=== PATIENT | female | born 1985 | race Caucasian/White ===

== ENCOUNTER 2020-07-20 11:56 | Emergency (ER) | payer OTHER, SELFPAY ==
[2020-07-20] VITALS (25 sets, daily range): BP systolic 114–134; BP diastolic 63–79; PULSE 105–134; RESP 15–27; TEMP 38.8–39.3; O2SAT 97–100; BMI 20.3
--- NOTE | 2020-07-20 12:11 | DI.RAD.S_ITS ---
PROCEDURE: XR CHEST 1V INDICATIONS: fever sp surgery TECHNIQUE: One view of the chest was acquired. COMPARISON: None. FINDINGS: Surgical changes and devices: None. Lungs and pleura: Lungs are clear. No pleural effusions or pneumothorax. Mediastinum: Mediastinal contours appear normal. Heart size is normal. Bones and chest wall: No suspicious bony lesions. Overlying soft tissues appear unremarkable. IMPRESSION: No acute cardiopulmonary disease process. Dictated by: Deysi Hopson MD, PhD on 07/20/2020 at 12:41 Approved by: Deysi Hopson MD, PhD on 07/20/2020 at 12:41
--- NOTE | 2020-07-20 12:44 | ED_ITS ---
HPI - Fever General Chief Complaint: Fever Stated Complaint: SURGERY 6DAYS AGO FEVER BODY ACHES Time Seen by Provider: 07/20/20 12:01 Source: patient Mode of arrival: Ambulatory Limitations: no limitations History of Present Illness HPI Narrative: 35F nonsmoker with noncontributory medical history presents with a chief complaint of fever, shaking chills and bilateral back pain over the past 24 hours. On July 13 patient had a bilateral breast augmentation at [facility]. She had been fine well and even had her 1st outpatient checkup yesterday and everything appeared well. She denies runny nose, sore throat or cough. She has no chest pain or shortness of breath. She only has the discomfort measured above. She states her discomfort is worse with motion and improves with rest. She has no dysuria, frequency or urgency. She denies vaginal bleeding or discharge. Related Data Home Medications Medication Instructions Recorded Confirmed meloxicam 15 mg PO QAM 07/20/20 07/20/20 oxycodone 5 mg PO Q6HR PRN 07/20/20 07/20/20 zafirlukast 20 mg PO BID 07/20/20 07/20/20 Allergies Allergy/AdvReac Type Severity Reaction Status Date / Time levofloxacin [From Levaquin] Allergy Severe Altered Verified 07/20/20 12:11 Sense of Taste lidocaine Allergy Unknown Verified 07/20/20 12:11 Review of Systems Constitutional Constitutional: Reports chills, Denies fatigue, Reports fever(s), Denies frequent falls, Denies lethargy and Denies weakness Eyes Eyes: Denies change in vision, Denies eye discharge, Denies irritation and Denies loss of vision ENT Ears, Nose, Mouth, and Throat: Denies change in voice, Denies dizziness, Denies neck pain, Denies sore throat and Denies throat swelling Cardiovascular Cardiovascular: Denies chest pain, Denies irregular heart rhythm, Denies lightheadedness, Denies palpitations, Denies dyspnea, Denies dyspnea on exertion and Denies orthopnea Respiratory Respiratory: Denies cough, Denies dyspnea, Denies dyspnea on exertion and Denies wheezing Gastrointestinal Gastrointestinal: Denies abdominal pain, Denies change in bowel habits, Denies d iarrhea, Denies nausea and Denies vomiting Musculoskeletal Musculoskeletal: Reports back pain, Denies neck pain and Denies numbness Integumentary/Breasts Skin/Breast: Denies pruritus, Denies erythema, Denies rash and Denies wounds Neurologic Neurologic: Denies behavioral changes, Denies confusion, Denies dizziness, Denies frequent falls, Denies loss of vision, Denies numbness and Denies weakness Psychiatric Psychiatric: Denies anxiety, Denies behavioral changes, Denies confusion, Denies depression, Denies homicidal ideation and Denies suicidal ideation Endocrine Endocrine: Denies fatigue, Denies flushing and Denies palpitations Hematologic/Lymphatic Hematologic/Lymphatic: Denies easy bruising Allergic/Immunologic Allergic/Immunologic: Denies urticaria, Denies throat swelling and Denies wheezing Patient History Social History Smoking Status: Never smoker Smoking Status: Never smoker alcohol intake frequency: 0-2 drinks per day Substance Use Type: does not use Exam Narrative Exam Narrative: GENERAL: [35] year old patient appears stated age. Well- nourished, well-developed patient, in mild distress. Ill appearing HEAD: Atraumatic. Normocephalic. EYES: Pupils equal round and reactive. Extraocular motions intact. No scleral icterus. No injection or drainage. ENT: Nose without bleeding, purulent drainage. Throat without erythema, tonsi llar hypertrophy or exudate. Airway patent. NECK: Trachea midline. Non tender CARDIOVASCULAR: Tachycardic and regular without murmurs, gallops, or rubs. RESPIRATORY: Clear to auscultation. Breath sounds equal bilaterally. No wheezes, rales, or rhonchi. GASTROINTESTINAL: Abdomen soft, mild tenderness over the suprapubic region. No epigastric or RUQ pain. EXTREMITIES: No edema or joint tenderness. BACK: Nontender without deformity or crepitance. No flank tenderness. NEURO: AOx3. SKIN: Incisions on chest exam and with patient permission and female nursing pants busheler at the bedside. Incisions appear clean, dry and intact without surrounding erythema, tenderness or drainage. Initial Vital Signs Initial Vital Signs: Vital Signs Temperature 102.8 F H 07/20/20 12:06 Pulse Rate 105 H 07/20/20 12:06 Respiratory Rate 24 07/20/20 12:06 Blood Pressure 127/73 07/20/20 12:06 Pulse Oximetry 100 07/20/20 12:06 Course Orders Ordered: ED Orders 07/20/20 12:11 XR chest 1V Stat EKG-12 Lead Stat 07/20/20 12:30 Urinalysis and Microscopic Stat 07/20/20 12:36 Complete Blood Count AUTO DIFF Stat Comprehensive Metabolic Panel Stat Lactate (Lactic Acid) Stat Lipase Stat Partial Thromboplastin Time Stat Procalcitonin Stat Prothrombin Time INR Stat Troponin & CK Cardiac Panel Stat 07/20/20 12:40 Test Urine Stat 07/20/20 13:16 COVID19 - ADMIT ([employer] swab/PCR) Stat 07/20/20 13:55 Blood Culture Stat 07/20/20 14:45 CT abdomen pelvis w con Stat CT angio chest PE protocol Stat 07/20/20 15:13 US abdomen limited Stat Ondansetron HCl (Ondansetron 4 Mg/2 Ml Inj) 4 mg IV Q4HR PRN PRN Reason: Nausea And Vomiting Last Admin: 07/20/20 12:55 Dose: 4 mg Documented by: VENICE Discontinued Medications Acetaminophen (Acetaminophen 325 Mg Tablet) 975 mg PO NOW ONE Stop: 07/20/20 14:14 Last Admin: 07/20/20 14:16 Dose: 975 mg Documented by: SHANNA Hydromorphone HCl (Hydromorphone 0.5 Mg Inj) 0.5 mg IV NOW ONE Stop: 07/20/20 12:51 Last Admin: 07/20/20 12:55 Dose: 0.5 mg Documented by: VENICE Hydromorphone HCl (Hydromorphone 0.5 Mg Inj) 0.5 mg IV NOW ONE Stop: 07/20/20 16:57 Last Admin: 07/20/20 17:01 Dose: 0.5 mg Documented by: RICK Lactated Ringer's (Lactated Ringers) 1,572 mls @ 524 mls/hr 30 ml/kg infuse over 3 hr (1572 ml) IV NOW ONE Stop: 07/20/20 15:10 Last Infusion: 07/20/20 16:00 Dose: 0 mls/hr Documented by: Admin: 07/20/20 12:51 Dose: 524 mls/hr Documented by: VENICE Ceftriaxone Sodium/Dextrose (Rocephin) 1 gm in 50 mls @ 100 mls/hr IV NOW ONE Stop: 07/20/20 13:54 Last Infusion: 07/20/20 14:45 Dose: 0 mls/hr Documented by: Admin: 07/20/20 14:13 Dose: 100 mls/hr Documented by: SHANNA Metronidazole (Flagyl) 500 mg in 100 mls @ 100 mls/hr IV NOW ONE Stop: 07/20/20 17:35 Last Infusion: 07/20/20 17:58 Dose: 0 mls/hr Documented by: Admin: 07/20/20 16:53 Dose: 100 mls/hr Documented by: RICK Consultations Consultation #1: call to hospitalist here at . NO available beds, no beds until at least tomorrow Consultation #2: call to [facility] given her recent surgery there. Hospitalist happy to accept Vital Signs Vital signs: Vital Signs - 8 hr 07/20/20 12:06 07/20/20 12:27 07/20/20 12:30 Temperature 102.8 F H Pulse Rate 105 H 134 H 134 H Respiratory Rate 24 Blood Pressure 127/73 128/78 124/79 Pulse Oximetry 100 100 100 07/20/20 13:00 07/20/20 13:30 07/20/20 14:00 Temperature Pulse Rate 125 H 125 H 119 H Respiratory Rate 17 21 Blood Pressure 117/70 117/72 134/73 Pulse Oximetry 100 99 100 07/20/20 14:30 07/20/20 15:01 07/20/20 15:02 Temperature Pulse Rate 123 H 124 H 124 H Respiratory Rate 20 16 Blood Pressure 123/71 115/63 Pulse Oximetry 100 100 07/20/20 15:30 07/20/20 16:00 07/20/20 16:30 Temperature Pulse Rate 121 H 126 H 122 H Respiratory Rate 20 20 22 Blood Pressure 122/71 115/64 115/67 Pulse Oximetry 99 99 98 07/20/20 17:00 07/20/20 17:30 07/20/20 18:00 Temperature Pulse Rate 119 H 121 H 119 H Respiratory Rate 27 H 19 15 Blood Pressure 120/71 114/65 Pulse Oximetry 100 100 98 07/20/20 18:09 07/20/20 18:30 07/20/20 19:00 Temperature Pulse Rate 122 H 117 H 121 H Respiratory Rate 16 18 Blood Pressure 114/65 119/64 122/65 Pulse Oximetry 98 100 100 07/20/20 19:29 Temperature 102.2 F H Pulse Rate Respiratory Rate Blood Pressure Pulse Oximetry MDM - Fever Lab Data Result diagrams: 07/20/20 12:36 07/20/20 12:36 Labs: Lab Results 07/20/20 07/20/20 07/20/20 Range/Units 12:30 12:36 12:36 WBC 18.7 H (4.5-11.0) X10^3/uL RBC 4.30 (4.0-5.2) X10^6/uL Hgb 12.9 (12.0-16.0) g/dL Hct 38.6 (36-46) % MCV 89.8 (80-100) fL MCH 30.0 (26-34) PG MCHC 33.5 (30-36) % RDW 13.9 (11.6-14.8) % Plt Count 212 (150-400) X10^3/uL Neut % (Auto) 92.9 H (50-75) % Lymph % (Auto) 2.1 L (25-40) % [place] % (Auto) 4.8 (3-14) % Eos % (Auto) 0.1 L (2-4) % Baso % (Auto) 0.1 (0-2) % Neut # (Auto) 02157 H (8566-2879) /uL Lymph # (Auto) 400 L (3730-9263) /uL [place] # (Auto) 900 (0-900) /uL Eos # (Auto) 0 (0-450) /uL Baso # (Auto) 0 (0-100) /uL PT 13.3 H (10.1-12.7) SECONDS INR 1.2 (0.9-1.3) APTT (26.4-36.2) SECONDS Sodium (137-145) mmol/L Potassium (3.4-5.1) mmol/L Chloride (98-107) mmol/L Carbon Dioxide (22-32) mmol/L BUN (7-17) mg/dL Creatinine (0.52-1.04) mg/dL Estimated GFR (>60) mL/min BUN/Creatinine Ratio (6-22) Glucose (70-100) mg/dL Lactate (0.7-2.1) mmol/L Calcium (8.4-10.2) mg/dL Total Bilirubin (0.2-1.3) mg/dL AST (14-36) IU/L ALT (<35) IU/L Alkaline Phosphatase (38-126) U/L Total Creatine Kinase (30-135) U/L CK-MB (CK-2) CK-MB (CK-2) Rel Index Troponin I (0.01-0.034) ng/mL Total Protein (6.3-8.2) g/dL Albumin (3.5-5.0) g/dL Globulin (1.7-4.1) g/dL Albumin/Globulin Ratio (1.0-2.8) Lipase (23-300) U/L Procalcitonin (<0.5) ng/mL Urine Color Yellow Urine Appearance Clear Urine pH 6.0 (4.5-8.0) Ur Specific [place] 1.025 (1.000-1.035) Urine Protein Negative (Negative) Urine Glucose (UA) Negative (Negative) g/dL Urine Ketones Negative (NEGATIVE) Urine Occult Blood Trace-lysed (Negative) Urine Nitrate Negative (Negative) Urine Bilirubin Negative (NEGATIVE) Urine Urobilinogen 0.2 (0.2) E.U./dL Ur Leukocyte Esterase Negative (NEGATIVE) Urine RBC None seen (0-5/HPF) Urine WBC None seen (0-5/HPF) Calcium Oxalate Crystal Few H Urine Bacteria Few (2-10) H (None) Ur Culture Indicated? Cult not indicated Urine Test (Negative) SARS-CoV-2 (PCR) (Negative) 07/20/20 07/20/20 07/20/20 Range/Units 12:36 12:36 12:36 WBC (4.5-11.0) X10^3/uL RBC (4.0-5.2) X10^6/uL Hgb (12.0-16.0) g/dL Hct (36-46) % MCV (80-100) fL MCH (26-34) PG MCHC (30-36) % RDW (11.6-14.8) % Plt Count (150-400) X10^3/uL Neut % (Auto) (50-75) % Lymph % (Auto) (25-40) % Fre[place] % (Auto) (3-14) % Eos % (Auto) (2-4) % Baso % (Auto) (0-2) % Neut # (Auto) (3792-1667) /uL Lymph # (Auto) (3332-6179) /uL Fre[place] # (Auto) (0-900) /uL Eos # (Auto) (0-450) /uL Baso # (Auto) (0-100) /uL PT (10.1-12.7) SECONDS INR (0.9-1.3) APTT 34 (26.4-36.2) SECONDS Sodium 134 L (137-145) mmol/L Potassium 3.6 (3.4-5.1) mmol/L Chloride 101 (98-107) mmol/L Carbon Dioxide 24 (22-32) mmol/L BUN 10 (7-17) mg/dL Creatinine 0.83 (0.52-1.04) mg/dL Estimated GFR > 60.0 (>60) mL/min BUN/Creatinine Ratio 12.0 (6-22) Glucose 122 H (70-100) mg/dL Lactate 1.0 (0.7-2.1) mmol/L Calcium 10.0 (8.4-10.2) mg/dL Total Bilirubin 0.3 (0.2-1.3) mg/dL AST 45 H (14-36) IU/L ALT 29 (<35) IU/L Alkaline Phosphatase 43 (38-126) U/L Total Creatine Kinase 95 (30-135) U/L CK-MB (CK-2) TNP CK-MB (CK-2) Rel Index TNP Troponin I < 0.012 (0.01-0.034) ng/mL Total Protein 8.3 H (6.3-8.2) g/dL Albumin 4.8 (3.5-5.0) g/dL Globulin 3.5 (1.7-4.1) g/dL Albumin/Globulin Ratio 1.4 (1.0-2.8) Lipase (23-300) U/L Procalcitonin 0.65 H (<0.5) ng/mL Urine Color Urine Appearance Urine pH (4.5-8.0) Ur Specific [place] (1.000-1.035) Urine Protein (Negative) Urine Glucose (UA) (Negative) g/dL Urine Ketones (NEGATIVE) Urine Occult Blood (Negative) Urine Nitrate (Negative) Urine Bilirubin (NEGATIVE) Urine Urobilinogen (0.2) E.U./dL Ur Leukocyte Esterase (NEGATIVE) Urine RBC (0-5/HPF) Urine WBC (0-5/HPF) Calcium Oxalate Crystal Urine Bacteria (None) Ur Culture Indicated? Urine Test (Negative) SARS-CoV-2 (PCR) (Negative) 07/20/20 07/20/20 07/20/20 Range/Units 12:36 12:40 13:16 WBC (4.5-11.0) X10^3/uL RBC (4.0-5.2) X10^6/uL Hgb (12.0-16.0) g/dL Hct (36-46) % MCV (80-100) fL MCH (26-34) PG MCHC (30-36) % RDW (11.6-14.8) % Plt Count (150-400) X10^3/uL Neut % (Auto) (50-75) % Lymph % (Auto) (25-40) % [place] % (Auto) (3-14) % Eos % (Auto) (2-4) % Baso % (Auto) (0-2) % Neut # (Auto) (6328-1026) /uL Lymph # (Auto) (0213-0088) /uL [place] # (Auto) (0-900) /uL Eos # (Auto) (0-450) /uL Baso # (Auto) (0-100) /uL PT (10.1-12.7) SECONDS INR (0.9-1.3) APTT (26.4-36.2) SECONDS Sodium (137-145) mmol/L Potassium (3.4-5.1) mmol/L Chloride (98-107) mmol/L Carbon Dioxide (22-32) mmol/L BUN (7-17) mg/dL Creatinine (0.52-1.04) mg/dL Estimated GFR (>60) mL/min BUN/Creatinine Ratio (6-22) Glucose (70-100) mg/dL Lactate (0.7-2.1) mmol/L Calcium (8.4-10.2) mg/dL Total Bilirubin (0.2-1.3) mg/dL AST (14-36) IU/L ALT (<35) IU/L Alkaline Phosphatase (38-126) U/L Total Creatine Kinase (30-135) U/L CK-MB (CK-2) CK-MB (CK-2) Rel Index Troponin I (0.01-0.034) ng/mL Total Protein (6.3-8.2) g/dL Albumin (3.5-5.0) g/dL Globulin (1.7-4.1) g/dL Albumin/Globulin Ratio (1.0-2.8) Lipase 102 (23-300) U/L Procalcitonin (<0.5) ng/mL Urine Color Urine Appearance Urine pH (4.5-8.0) Ur Specific [place] (1.000-1.035) Urine Protein (Negative) Urine Glucose (UA) (Negative) g/dL Urine Ketones (NEGATIVE) Urine Occult Blood (Negative) Urine Nitrate (Negative) Urine Bilirubin (NEGATIVE) Urine Urobilinogen (0.2) E.U./dL Ur Leukocyte Esterase (NEGATIVE) Urine RBC (0-5/HPF) Urine WBC (0-5/HPF) Calcium Oxalate Crystal Urine Bacteria (None) Ur Culture Indicated? Urine Test Negative (Negative) SARS-CoV-2 (PCR) Negative (Negative) Point of Care Testing Test Results Negative Urine Dip Bedside Urine Glucose Negative Bedside Urine Bilirubin - Negative Bedside Urine Ketone - Negative Urine Specific [place] 1.020 Bedside Urine Occult Blood - Negative Bedside Urine pH 6 Bedside Urine Protein - Negative Bedside Urine Urobilinogen - Negative Bedside Urine Nitrite - Negative Bedside Urine Leukocytes - Negative Esterase Imaging Data CT scan - chest: Radiologist's Impression: [address] [id number] Scan ReportSigned Patient: Anita Chapa [facility]#: [id number]: 1985Acct:[id number]/Sex: 35 / FDate of Service: 07/20/20Loc: EDAccession Number: [id number] Procedure: CT angio chest PE protocol Ordering Provider: Sagar Santoro D.O. PROCEDURE: CT ANGIO CHEST PE PROTOCOL INDICATIONS: tachycardia, elevated WBC, recent surgery, per surgeon TECHNIQUE: After the administration of intravenous contrast, 2 mm thick sections acquired from the pulmonary apices to the posterior costophrenic angles. 3-dimensional maximum intensity projection (MIP) coronal and sagittal reformats were then acquired through the thorax. For radiation dose reduction, the following was used: automated exposure control, adjustment of mA and/or kV according to patient size. COMPARISON: None. FINDINGS: Image quality: Excellent. Pulmonary arteries: Pulmonary arteries are normal in size, and demonstrate no intraluminal filling defects to suggest central pulmonary embolism. Lungs and pleura: Lungs are clear. No pleural effusions or pneumothorax. Central and peripheral airways are patent. Mediastinum: Heart size is normal, without pericardial effusion. No mediastinal or hilar adenopathy. Thoracic aorta is normal in caliber and enhancement. Esophagus is normal in caliber, without hiatal hernia. Bones and chest wall: No suspicious bony lesions. Ribs and thoracic spine appear intact throughout. Thyroid gland is unremarkable as visualized No axillary or supracla vicular adenopathy. Bilateral mammoplasties. Air present in subcutaneous tissues and beneath the medial right pectoralis muscle and extending into the bilateral axillary regions likely is resultant from recent surgery. No identified superficial abscess cavities. There is a small amount of fluid immediately medial to the left breast implant which likely is explained by recent surgery. Abdomen: Visualized upper abdominal solid organs appear normal in the early arterial phase of enhancement. IMPRESSION: 1. No evidence acute pulmonary emboli. 2. No evidence acute pulmonary process. 3. Bilateral mammoplasties with associated air which is presumed secondary to very recent surgery. There is a small amount of fluid medial to the left breast implant which most likely is an incidental finding secondary to recent breast surgery. Dictated by: Nam Leija M.D. on 07/20/2020 at 15:10 Approved by: Nam Leija M.D. on 07/20/2020 at 15:14 CT scan - abdomen/pelvis: Radiologist's Impression: [address] [id number] Scan ReportSigned Patient: Anita Chapa [facility]#: [id number]: 1985Acct:[id number]/Sex: 35 / FDate of Service: 07/20/20Loc: EDAccession Number: [id number] Procedure: CT abdomen pelvis w con Ordering Provider: Sagar Santoro D.O. PROCEDURE: CT ABDOMEN PELVIS W CON INDICATIONS: septic, back, lower abdomen pain, recent breast surgery TECHNIQUE: After the administration of intravenous contrast, 5 mm thick sections acquired f rom the diaphragm to the symphysis. 5 mm coronal and sagittal reformats were acquired. For radiation dose reduction, the following was used: automated exposure control, adjustment of mA and/or kV according to patient size. COMPARISON: [facility], CT, CT ANGIO CHEST PE PROTOCOL, 07/20/2020, 14:51. FINDINGS: Image quality: Excellent. ABDOMEN: Lung bases: Lung bases are clear. Heart size is normal. Bilateral mammoplasties. Subcutaneous air and air adjacent to the mammoplasties suggests recent surgical implantation. Solid organs: Liver is normal in size and enhancement. Gallbladder has a mildly prominent wall with a question of edema in the wall of the gallbladder. Biliary system is non dilated. Pancreas enhances normally. Spleen is normal in size and enhancement. No adrenal nodules. Kidneys demonstrate normal size and enhancement, without hydronephrosis. Peritoneum and bowel: There is diffuse thickening of the wall of the distal transverse colon through the descending colon consistent with acute colitis. Mildly prominent small bowel loops with fluid suggest possible gastroenteritis versus ileus. Mild pelvic ascites is greater than physiologic. Nodes and vessels: No retroperitoneal or mesenteric adenopathy by size criteria. Aorta and inferior vena cava are normal in size. 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 Miscellaneous: No ventral hernias. PELVIS: Genitourinary: Bladder wall thickness is normal. Miscellaneous: No inguinal hernias or adenopathy. Bones: No suspicious bony lesions. No vertebral body compression fractures. IMPRESSION: 1. Recent bilateral breast implant surgery. 2. Colitis from the distal transverse colon through the descending colon. Consider infectious versus inflammatory versus ischemic etiologies. 3. Question mild gallbladder wall edema. If suspect acute cholecystitis, recommend right upper quadrant ultrasound. 4. Mild pelvic ascites. Dictated by: Nam Leija M.D. on 07/20/2020 at 15:05 Approved by: Nam Leija M.D. on 07/20/2020 at 15:10 US - abdomen: Radiologist's Impression: [address] [id number] ReportSigned Patient: Anita Chapa [facility]#: [id number]: 1985Acct:[id number]/Sex: 35 / FDate of Service: 07/20/20Loc: EDAccession Number: [id number] Procedure: US abdomen limited Ordering Provider: Sagar Santoro D.O. PROCEDURE: US ABDOMEN LIMITED INDICATIONS: FOLLOW UP CT ?CHOLECYSTITIS TECHNIQUE: Real-time focused scanning was performed of the abdomen, with image documentation. COMPARISON: [facility], CT, CT ABD PELVIS W CON, 03/06/2015, 3:51. [facility], CT, CT ANGIO CHEST PE PROTOCOL, 07/20/2020, 14:51. [facility], CT, CT ABDOMEN PELVIS W CON, 07/20/2020, 14:51. FINDINGS: No gallstones. No gallbladder wall thickening, pericholecystic fluid or sonographic Winkler's sign. Liver demonstrates normal size and echotexture. The main portal vein measures 1.1 cm and demonstrates hepatopetal flow. Common bile duct is normal in caliber measuring 3.2 mm. Visualized pancreas is normal. IMPRESSION: 1. Normal right upper quadrant abdominal ultrasound. 2. No gallstones or findings to suggest acute cholecystitis. Dictated by: Bianca Garrison M.D. on 07/20/2020 at 16:23 Approved by: Bianca Garrison M.D. on 07/20/2020 at 16:26 MDM Narrative Medical decision making narrative: 35F otherwise healthy presents with fever, chills, tachycardia, tachypnea and back pain. Lungs are clear, chest x-ray and CT chest unremarkable, PE considered but thought unlikely given years with imaging. Normal known he has got expelled with surgical incisions all clean, dry and intact without erythema or dehiscence. Abdomen is largely very soft, no significant findings, there is some tenderness in the suprapubic region again raising suspicion of a possible urinary source, however urine is clear. Imaging does demonstrate some colitis and raises the question about the gallbladder. U ltrasound of the gallbladder unremarkable his patient requires admission for ongoing evaluation and treatment of sepsis which to this point seems to be only explained by colitis on imaging. Critical Care Time Critical Care Time Critical Care Time: Yes Total Critical Care Time: 30 Attestation: The high probability of a clinically significant, sudden or life threatening deterioration of the [CV] system(s) required my full and direct attention, inter vention and personal management. The aggregate critical care time was [30] minutes. This time is in addition to time spent performing reported procedures but includes the following: [x] Data Review and interpretation [x] Patient assessment and monitoring of vital signs [x] Documentation [x] Medication orders and management Discharge Plan Departure Prescriptions: No Action meloxicam 15 mg tablet 15 mg PO QAM RF: 0 zafirlukast 20 mg tablet 20 mg PO BID RF: 0 oxycodone 5 mg tablet 5 mg PO Q6HR PRN (Reason: Pain (Scale Score 7-10)) RF: 0
[2020-07-20] MEDS: LACTATED RINGERS 1,572 ML 524 ML IV (12:51)
[2020-07-20] MEDS: ONDANSETRON 4 MG/2 ML INJ IV (12:55)
[2020-07-20] MEDS: HYDROMORPHONE 0.5 MG INJ IV ×3 (12:55→20:41)
[2020-07-20 12:56] LABS: Pregnancy Test Urine Negative (Negative)
[2020-07-20 13:06] LABS: INR 1.2 (0.9-1.3); Prothrombin Time 13.3 SECONDS (10.1-12.7)
[2020-07-20 13:08] LABS: Add Manual Diff / Slide Review NO; Basophils Absolute Auto 0 /uL (0-100); Basophils Percent Auto 0.1 % (0-2); Eosinophils Absolute Auto 0 /uL (0-450); Eosinophils Percent Auto 0.1 % (2-4); Hematocrit 38.6 % (36-46); Hemoglobin 12.9 g/dL (12.0-16.0); Lymphocytes Absolute Auto 400 /uL (1100-4500); Lymphocytes Percent Auto 2.1 % (25-40); Mean Corpuscular HGB Conc 33.5 % (30-36); Mean Corpuscular Volume 89.8 fL (80-100); Monocytes Absolute Auto 900 /uL (0-900); Monocytes Percent Auto 4.8 % (3-14); Neutrophils Absolute Auto 17400 /uL (1500-7000); Neutrophils Percent Auto 92.9 % (50-75); Platelet Count 212 X10^3/uL (150-400); Red Cell Distribution Width 13.9 % (11.6-14.8); White Blood Cell Count 18.7 X10^3/uL (4.5-11.0)
[2020-07-20 13:11] LABS: HEMOLYSIS < 15 (0-50); Potassium 3.6 mmol/L (3.4-5.1)
[2020-07-20 13:12] LABS: Alanine Aminotransferase 29 IU/L (<35); Albumin 4.8 g/dL (3.5-5.0); Albumin Globulin Ratio 1.4 (1.0-2.8); Alkaline Phosphatase 43 U/L (38-126); Aspartate Aminotransferase 45 IU/L (14-36); Bilirubin Total 0.3 mg/dL (0.2-1.3); Blood Urea Nitrogen 10 mg/dL (7-17); Carbon Dioxide 24 mmol/L (22-32); Chloride 101 mmol/L (98-107); Creatine Kinase 95 U/L (30-135); Estimated Glomerular Filt Rate > 60.0 mL/min (>60); Globulin 3.5 g/dL (1.7-4.1); Glucose 122 mg/dL (70-100); Sodium 134 mmol/L (137-145); Total Protein 8.3 g/dL (6.3-8.2)
[2020-07-20 13:17] LABS: PTT Partial Thromboplastin Tim 34 SECONDS (26.4-36.2)
[2020-07-20 13:23] LABS: Troponin I < 0.012 ng/mL (0.01-0.034)
[2020-07-20 13:28] LABS: Procalcitonin 0.65 ng/mL (<0.5)
[2020-07-20 13:56] LABS: RBC Urine None Seen (0-5/HPF); WBC Urine None Seen (0-5/HPF)
[2020-07-20 14:00] LABS: Appearance Urine UA CLEAR; Bilirubin Urine UA NEGATIVE (NEGATIVE); Color Urine UA YELLOW; Glucose Urine UA NEGATIVE (Negative); Ketones Urine UA NEGATIVE (NEGATIVE); Leukocyte Esterase Urine UA NEGATIVE (NEGATIVE); Nitrite Urine UA NEGATIVE (Negative); Occult Blood Urine UA TRACE-LYSED (Negative); Protein Urine UA NEGATIVE (Negative); Specific Gravity Urine UA 1.025 (1.000-1.035); Urobilinogen Urine UA 0.2 E.U./dL (0.2)
[2020-07-20 14:13] LABS: COVID19 - ADMIT (NP swab/PCR) Negative (Negative)
[2020-07-20] MEDS: CEFTRIAXONE 1 GM/50 ML FROZ.PIGGY IV (14:13)
[2020-07-20] MEDS: ACETAMINOPHEN 325 MG TABLET 975 MG PO (14:16)
[2020-07-20 14:29] LABS: Bacteria Urine Few (2-10); Calcium Oxalate Crystals Urine Few; Culture Indicated Urine Cult Not Indicated
--- NOTE | 2020-07-20 14:45 | DI.CT.S_ITS ---
PROCEDURE: CT ANGIO CHEST PE PROTOCOL INDICATIONS: tachycardia, elevated WBC, recent surgery, per surgeon TECHNIQUE: After the administration of intravenous contrast, 2 mm thick sections acquired from the pulmonary apices to the posterior costophrenic angles. 3-dimensional maximum intensity projection (MIP) coronal and sagittal reformats were then acquired through the thorax. For radiation dose reduction, the following was used: automated exposure control, adjustment of mA and/or kV according to patient size. COMPARISON: None. FINDINGS: Image quality: Excellent. Pulmonary arteries: Pulmonary arteries are normal in size, and demonstrate no intraluminal filling defects to suggest central pulmonary embolism. Lungs and pleura: Lungs are clear. No pleural effusions or pneumothorax. Central and peripheral airways are patent. Mediastinum: Heart size is normal, without pericardial effusion. No mediastinal or hilar adenopathy. Thoracic aorta is normal in caliber and enhancement. Esophagus is normal in caliber, without hiatal hernia. Bones and chest wall: No suspicious bony lesions. Ribs and thoracic spine appear intact throughout. Thyroid gland is unremarkable as visualized No axillary or supraclavicular adenopathy. Bilateral mammoplasties. Air present in subcutaneous tissues and beneath the medial right pectoralis muscle and extending into the bilateral axillary regions likely is resultant from recent surgery. No identified superficial abscess cavities. There is a small amount of fluid immediately medial to the left breast implant which likely is explained by recent surgery. Abdomen: Visualized upper abdominal solid organs appear normal in the early arterial phase of enhancement. IMPRESSION: 1. No evidence acute pulmonary emboli. 2. No evidence acute pulmonary process. 3. Bilateral mammoplasties with associated air which is presumed secondary to very recent surgery. There is a small amount of fluid medial to the left breast implant which most likely is an incidental finding secondary to recent breast surgery. Dictated by: Nam Leija M.D. on 07/20/2020 at 15:10 Approved by: Nam Leija M.D. on 07/20/2020 at 15:14
--- NOTE | 2020-07-20 14:45 | DI.CT.S_ITS ---
PROCEDURE: CT ABDOMEN PELVIS W CON INDICATIONS: septic, back, lower abdomen pain, recent breast surgery TECHNIQUE: After the administration of intravenous contrast, 5 mm thick sections acquired from the diaphragm to the symphysis. 5 mm coronal and sagittal reformats were acquired. For radiation dose reduction, the following was used: automated exposure control, adjustment of mA and/or kV according to patient size. COMPARISON: [facility], CT, CT ANGIO CHEST PE PROTOCOL, 07/20/2020, 14:51. FINDINGS: Image quality: Excellent. ABDOMEN: Lung bases: Lung bases are clear. Heart size is normal. Bilateral mammoplasties. Subcutaneous air and air adjacent to the mammoplasties suggests recent surgical implantation. Solid organs: Liver is normal in size and enhancement. Gallbladder has a mildly prominent wall with a question of edema in the wall of the gallbladder. Biliary system is non dilated. Pancreas enhances normally. Spleen is normal in size and enhancement. No adrenal nodules. Kidneys demonstrate normal size and enhancement, without hydronephrosis. Peritoneum and bowel: There is diffuse thickening of the wall of the distal transverse colon through the descending colon consistent with acute colitis. Mildly prominent small bowel loops with fluid suggest possible gastroenteritis versus ileus. Mild pelvic ascites is greater than physiologic. Nodes and vessels: No retroperitoneal or mesenteric adenopathy by size criteria. Aorta and inferior vena cava are normal in size. 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 Miscellaneous: No ventral hernias. PELVIS: Genitourinary: Bladder wall thickness is normal. Miscellaneous: No inguinal hernias or adenopathy. Bones: No suspicious bony lesions. No vertebral body compression fractures. IMPRESSION: 1. Recent bilateral breast implant surgery. 2. Colitis from the distal transverse colon through the descending colon. Consider infectious versus inflammatory versus ischemic etiologies. 3. Question mild gallbladder wall edema. If suspect acute cholecystitis, recommend right upper quadrant ultrasound. 4. Mild pelvic ascites. Dictated by: Nam Leija M.D. on 07/20/2020 at 15:05 Approved by: Nam Leija M.D. on 07/20/2020 at 15:10
--- NOTE | 2020-07-20 15:13 | DI.US.S_ITS ---
PROCEDURE: US ABDOMEN LIMITED INDICATIONS: FOLLOW UP CT ?CHOLECYSTITIS TECHNIQUE: Real-time focused scanning was performed of the abdomen, with image documentation. COMPARISON: [facility], CT, CT ABD PELVIS W CON, 03/06/2015, 3:51. [facility], CT, CT ANGIO CHEST PE PROTOCOL, 07/20/2020, 14:51. [facility], CT, CT ABDOMEN PELVIS W CON, 07/20/2020, 14:51. FINDINGS: No gallstones. No gallbladder wall thickening, pericholecystic fluid or sonographic Winkler's sign. Liver demonstrates normal size and echotexture. The main portal vein measures 1.1 cm and demonstrates hepatopetal flow. Common bile duct is normal in caliber measuring 3.2 mm. Visualized pancreas is normal. IMPRESSION: 1. Normal right upper quadrant abdominal ultrasound. 2. No gallstones or findings to suggest acute cholecystitis. Dictated by: Bianca Garrison M.D. on 07/20/2020 at 16:23 Approved by: Bianca Garrison M.D. on 07/20/2020 at 16:26
[2020-07-20] MEDS: metroNIDAZOLE 500 MG/100 ML PIGGYBACK 100 MG IV (16:53)
[2020-07-20 17:43] LABS: Lipase 102 U/L (23-300)
[2020-07-20] MEDS: ACETAMINOPHEN 325 MG TABLET 650 MG PO (20:03)
== END 2020-07-20 20:55 | disposition short-term general hospital (02) ==
PROVIDERS: Emergency Provider Emergency Medicine; Family Provider Naturopath; PCP Naturopath
DX: K52.9 Noninfective gastroenteritis and colitis, unspecified (principal); A41.9 Sepsis, unspecified organism; R50.9 Fever, unspecified; M54.9 Dorsalgia, unspecified; R10.30 Lower abdominal pain, unspecified; D72.829 Elevated white blood cell count, unspecified; R00.0 Tachycardia, unspecified; Z20.828 Contact with and (suspected) exposure to other viral communicable diseases
CPT/HCPCS: 36415; 71045; 71275; 74177; 76705; 80053; 81001; 81003; 81025; 82550; 83605; 83690; 84145; 84484; 85025; 85610; 85730; 87040; 87635; 93005; 93010; 96361; 96365; 96367; 96375; 96376; 99284; 99291; C9803; J1170; J2405; Q9967

== ENCOUNTER → 2021-04-08 14:41 | Outpatient (CLI) | payer OTHER, SELFPAY ==
[2021-04-08 15:14] LABS: COVID19 -Nasal RAPID Negative (Negative)
== END ==
PROVIDERS: Family Provider Naturopath; PCP Naturopath; Visit Provider Nurse Practitioner Family
DX: Z20.822 Contact with and (suspected) exposure to COVID-19 (principal)
CPT/HCPCS: 87635

== ENCOUNTER → 2022-04-10 08:01 | Outpatient (ROUT) | payer OTHER, SELFPAY ==
[2022-04-10 08:45] LABS: Add Manual Diff / Slide Review NO; Basophils Absolute Auto 100 /uL (0-100); Basophils Percent Auto 1.1 % (0-2); Eosinophils Absolute Auto 200 /uL (0-450); Eosinophils Percent Auto 3.6 % (2-4); Hematocrit 39.8 % (36-46); Hemoglobin 13.2 g/dL (12.0-16.0); Lymphocytes Absolute Auto 2000 /uL (1100-4500); Lymphocytes Percent Auto 36.4 % (25-40); Mean Corpuscular HGB Conc 33.2 % (30-36); Mean Corpuscular Hemoglobin 29.9 PG (26-34); Monocytes Absolute Auto 400 /uL (0-900); Monocytes Percent Auto 7.5 % (3-14); Neutrophils Absolute Auto 2800 /uL (1500-7000); Neutrophils Percent Auto 51.4 % (50-75); Platelet Count 254 X10^3/uL (150-400); Red Blood Cell Count 4.43 X10^6/uL (4.0-5.2); Red Cell Distribution Width 13.6 % (11.6-14.8); White Blood Cell Count 5.5 X10^3/uL (4.5-11.0)
[2022-04-10 09:01] LABS: Alanine Aminotransferase 19 IU/L (<35); Albumin 4.6 g/dL (3.5-5.0); Albumin Globulin Ratio 1.4 (1.0-2.8); Alkaline Phosphatase 35 U/L (38-126); Aspartate Aminotransferase 29 IU/L (14-36); BUN Creatinine Ratio 14.7 (6-22); Bilirubin Total 0.6 mg/dL (0.2-1.3); Blood Urea Nitrogen 10 mg/dL (7-17); Calcium 8.8 mg/dL (8.4-10.2); Carbon Dioxide 27 mmol/L (22-32); Chloride 105 mmol/L (98-107); Cholesterol 185 mg/dL (140-199); Estimated Glomerular Filt Rate > 60 mL/min (>60); Globulin 3.2 g/dL (1.7-4.1); Glucose 81 mg/dL (70-100); HDL Cholesterol 71 mg/dL (40-60); HEMOLYSIS < 15 (0-50); LDL Cholesterol Calculated 87 mg/dL (<100); Potassium 4.3 mmol/L (3.4-5.1); Sodium 139 mmol/L (137-145); Total Protein 7.8 g/dL (6.3-8.2); Triglycerides 136 mg/dL (35-150)
[2022-04-10 09:18] LABS: Free T3, Triiodothyronine Free 3.44 pg/mL (2.77-5.27); Free T4, Direct Thyroxine 0.82 ng/dL (0.78-2.19); Vitamin D 25 Hydroxy (D3) 38.8 ng/mL (30.0-100.0)
[2022-04-10 09:32] LABS: Thyroid Stimulating Hormone 2.35 uIU/mL (0.47-4.68)
== END ==
PROVIDERS: Family Provider Naturopath; PCP Family Medicine; Visit Provider Family Medicine
DX: E03.9 Hypothyroidism, unspecified (principal); Z83.438 Family history of other disorder of lipoprotein metabolism and other lipidemia; E55.9 Vitamin D deficiency, unspecified; K90.41 Non-celiac gluten sensitivity
CPT/HCPCS: 36415; 80053; 80061; 82306; 84439; 84443; 84481; 85025

== ENCOUNTER → 2022-11-16 07:55 | Outpatient (CLI) | payer OTHER, SELFPAY | PROVIDERS: Family Provider Naturopath; PCP Physician Assistant; Referring Provider Physician Assistant; Visit Provider Physician Assistant | DX: R00.2 Palpitations (principal) | CPT/HCPCS: 93242 ==

== ENCOUNTER → 2023-04-10 12:01 | Outpatient (CLI) | payer OTHER, SELFPAY | PROVIDERS: Family Provider Naturopath; PCP Family Medicine; Visit Provider Family Medicine | DX: R39.9 Unspecified symptoms and signs involving the genitourinary system (principal) | CPT/HCPCS: 87077; 87086; 87186 ==

== ENCOUNTER → 2023-04-20 12:04 | Outpatient (CLI) | payer OTHER, SELFPAY ==
--- NOTE | 2023-04-20 | DI.MG.S_ITS ---
BILATERAL DIGITAL DIAGNOSTIC MAMMOGRAM 3D/2D WITH AUGMENTATION: 04/20/2023 CLINICAL: Left breast lump. Comparison is made to exams dated: 05/26/2022 ultrasound, 06/16/2022 ultrasound, 05/26/2022 mammogram, and 06/01/2020 mammogram - [facility]. Both breasts are heterogeneously dense, which may obscure small masses (category c / 51-75% glandular tissue). There is a 0.9 cm oval asymmetry in the left breast anterior depth inferior region seen on the mediolateral oblique view only. This correlates as palpated. No other significant masses, calcifications, or other findings are seen in either breast. Bilateral breast implants are intact. IMPRESSION: INCOMPLETE: NEEDS ADDITIONAL IMAGING EVALUATION The 0.9 cm oval asymmetry in the left breast is indeterminate. A targeted ultrasound is recommended and will immediately follow. Based on the Tyrer Cuzick model (a risk assessment model) the patient's lifetime risk is 12.8% and her 10 year risk is 1.4%. According to the ACR, ACS, and NCCN guidelines, an annual breast MRI exam along with mammogram is recommended if the patient's lifetime risk is 20% or greater. This exam was interpreted at Station ID: [id number]. NOTE: For mammograms, a report in lay terms will be sent to the patient. Approximately 15% of breast malignancies will not be visualized mammographically. In the management of a palpable breast mass, a negative mammogram must not discourage biopsy of a clinically suspicious lesion. Electronically Signed By: Jarad Nathan M.D. slc/:04/20/2023 13:24:23 ACR BI-RADS Category 0: Incomplete 3340F
--- NOTE | 2023-04-20 12:06 | DI.US.S_ITS ---
LIMITED ULTRASOUND OF LEFT BREAST AND AXILLA: 04/20/2023 CLINICAL: Palpable left breast lump. Comparison is made to exams dated: 04/20/2023 mammogram - [facility], 05/26/2022 ultrasound, 06/16/2022 ultrasound, 05/26/2022 mammogram, and 06/01/2020 mammogram - [facility]. Color flow and real-time ultrasound of the left breast axilla were performed. Wahl scale images of the real-time examination were reviewed. There is a 1.2 cm x 0.9 cm x 0.4 cm oval mass with a circumscribed margin in the left breast at 6 o'clock anterior depth 2 cm from the nipple. This oval mass is hypoechoic with a well-defined boundary. This correlates as palpated and with mammography findings. Color flow imaging demonstrates that there is vascularity present. No significant abnormalities were seen sonographically in the left axilla. IMPRESSION: SUSPICIOUS OF MALIGNANCY The 1.2 cm x 0.9 cm x 0.4 cm oval mass in the left breast has a differential diagnosis of a fibroadenoma and is at a low suspicion for malignancy. An ultrasound guided biopsy is recommended. No enlarged left axillary lymph nodes. Exam findings were discussed with the patient. Discussed additional risk of implant injury with needle biopsy. This exam was interpreted at Station ID: [id number]. Electronically Signed By: Jarad Nathan M.D. [facility] [place]:04/20/2023 13:40:37 letter sent: Biopsy Required Ultrasound BI-RADS: 4a Low suspicion for malignancy
== END ==
LOC: MAMMO 12:05
PROVIDERS: Family Provider Naturopath; PCP Family Medicine; Referring Provider Family Medicine; Visit Provider Family Medicine
DX: R92.8 Other abnormal and inconclusive findings on diagnostic imaging of breast (principal); N63.23 Unspecified lump in the left breast, lower outer quadrant; R92.333 Mammographic heterogeneous density, bilateral breasts; Z98.82 Breast implant status
CPT/HCPCS: 76642; 77066; G0279

== ENCOUNTER → 2023-04-25 09:32 | Outpatient (CLI) | payer OTHER, SELFPAY ==
[2023-04-25 10:13] LABS: Add Manual Diff / Slide Review NO; Basophils Absolute Auto 0 /uL (0-100); Eosinophils Absolute Auto 100 /uL (0-450); Eosinophils Percent Auto 2.4 % (2-4); Hematocrit 36.5 % (36-46); Hemoglobin 12.2 g/dL (12.0-16.0); Lymphocytes Absolute Auto 2000 /uL (1100-4500); Lymphocytes Percent Auto 39.1 % (25-40); Mean Corpuscular HGB Conc 33.5 % (30-36); Mean Corpuscular Hemoglobin 29.2 PG (26-34); Mean Corpuscular Volume 87.3 fL (80-100); Monocytes Absolute Auto 400 /uL (0-900); Monocytes Percent Auto 8.8 % (3-14); Neutrophils Absolute Auto 2500 /uL (1500-7000); Neutrophils Percent Auto 48.7 % (50-75); Platelet Count 276 X10^3/uL (150-400); Red Blood Cell Count 4.18 X10^6/uL (4.0-5.2); Red Cell Distribution Width 14.8 % (11.6-14.8); White Blood Cell Count 5.1 X10^3/uL (4.5-11.0)
[2023-04-25 10:29] LABS: Erythrocyte Sedimentation Rate 2 MM/HR (0-20)
[2023-04-25 10:35] LABS: Alanine Aminotransferase 18 IU/L (<35); Albumin 4.5 g/dL (3.5-5.0); Albumin Globulin Ratio 1.5 (1.0-2.8); Alkaline Phosphatase 42 U/L (38-126); Aspartate Aminotransferase 25 IU/L (14-36); BUN Creatinine Ratio 15.6 (6-22); Bilirubin Total 0.5 mg/dL (0.2-1.3); Blood Urea Nitrogen 10 mg/dL (7-17); Calcium 9.7 mg/dL (8.4-10.2); Carbon Dioxide 27 mmol/L (22-32); Chloride 101 mmol/L (98-107); Cholesterol 176 mg/dL (140-199); Estimated Glomerular Filt Rate > 60 mL/min (>60); Glucose 95 mg/dL (70-100); HDL Cholesterol 75 mg/dL (40-60); HEMOLYSIS < 15 (0-50); LDL Cholesterol Calculated 86 mg/dL (<100); Potassium 4.4 mmol/L (3.4-5.1); Sodium 136 mmol/L (137-145); Total Protein 7.5 g/dL (6.3-8.2); Triglycerides 74 mg/dL (35-150)
[2023-04-25 10:54] LABS: Vitamin D 25 Hydroxy (D3) 25.8 ng/mL (30.0-100.0)
[2023-04-25 11:09] LABS: TSH w/ Reflex to FT4 1.73 uIU/mL (0.47-4.68)
== END ==
PROVIDERS: Family Provider Naturopath; PCP Family Medicine; Referring Provider Family Medicine; Visit Provider Family Medicine
DX: E55.9 Vitamin D deficiency, unspecified (principal); Z83.438 Family history of other disorder of lipoprotein metabolism and other lipidemia; E03.9 Hypothyroidism, unspecified; F41.9 Anxiety disorder, unspecified; K90.41 Non-celiac gluten sensitivity
CPT/HCPCS: 36415; 80053; 80061; 82306; 84443; 85025; 85651

== ENCOUNTER → 2023-05-02 09:19 | Outpatient (CLI) | payer OTHER, SELFPAY ==
--- NOTE | 2023-05-02 | DI.MG.S_ITS ---
UNILATERAL LEFT DIGITAL DIAGNOSTIC MAMMOGRAM POST-PROCEDURE IMAGING FOR MARKER PLACEMENT WITH AUGMENTATION: 05/02/2023 CLINICAL: Post clip. Comparison is made to exams dated: 04/20/2023 mammogram - [facility], 05/26/2022 mammogram, and 06/01/2020 mammogram - [facility]. The left breast is heterogeneously dense, which may obscure small masses (category c / 51-75% glandular tissue). Additionally, there is a marker clip in the appropriate position in the left breast at 6 o'clock anterior depth 2 cm from the nipple. There is a surgical clip and skin thickening associated with the mass. IMPRESSION: PROBABLY BENIGN There was a successful marker clip placement in the left breast at 6 o'clock anterior depth. Based on the Tyrer Cuzick model (a risk assessment model) the patient's lifetime risk is 12.8% and her 10 year risk is 1.4%. According to the ACR, ACS, and NCCN guidelines, an annual breast MRI exam along with mammogram is recommended if the patient's lifetime risk is 20% or greater. This exam was interpreted at Station ID: [id number]. NOTE: For mammograms, a report in lay terms will be sent to the patient. Approximately 15% of breast malignancies will not be visualized mammographically. In the management of a palpable breast mass, a negative mammogram must not discourage biopsy of a clinically suspicious lesion. Electronically Signed By: Jose Rendon M.D. pc/:05/03/2023 08:50:35 ACR BI-RADS Category 3: Probably benign [id number]
--- NOTE | 2023-05-02 | PATH_ITS ---
[facility] Accession Number: [id number] No. of containers..01 Tissue . 01 Material submitted: . breast - LEFT BREAST 6:00 2 CMCN MASS PALPABLE . 01 Diagnosis: Left Breast, 6 o'clock, 2 cm FN Palpable Mass, Core Needle Biopsy: Benign fibroepithelial lesion consistent with fibroadenoma. Negative for atypical hyperplasia, in situ or invasive carcinoma. MRV 05/04/2023 1602 Local . 01 Electronically signed: . Adeola Witt MD, Pathologist NPI- [id number] . 01 Gross description: . The specimen is received in formalin labeled with the patient's name, , and left breast 6 o'clock 2 cm FN, consists of multiple yellow to polanco soft tissue fragments aggregating to 1.7 x 1.0 x 0.2 cm. Filtered, inked blue, and submitted entirely in cassette A1. . The specimen was removed on 05/02/2023 at 1030; time in formalin not provided; cold ischemic time cannot be calculated; and total fixation time is approximately 32 hours. ([id number]) /MRV 05/03/2023 1305 Local . 01 Pathologist provided ICD-10: D24.2 . 01 CPT . 847383 Specimen Comment: A courtesy copy of this report has been sent to [facility] Performed at: 01 [facility] [address] [place] [address] [address], [place], [place] [id number] MD Mau Page MD Phone: [phone]
--- NOTE | 2023-05-02 09:20 | DI.US.S_ITS ---
ULTRASOUND GUIDED BIOPSY LEFT BREAST WITH MARKING DEVICE INSERTED: 05/02/2023 CLINICAL: Left breast mass. PATIENT CONSENT: Risks (minor bleeding, infection, vasovagal reaction and repeat procedure), benefits and alternatives were explained to the patient and written informed consent was obtained. Correlation is made to exams dated: 05/02/2023 mammogram, 05/02/2023 mammogram, 04/20/2023 ultrasound, 04/20/2023 mammogram - [facility], 06/16/2022 ultrasound, and 05/26/2022 ultrasound - [facility]. An ultrasound guided biopsy using real-time ultrasound was performed for the 1.2 cm x 0.9 cm x 0.4 cm mass located in the left breast at 6 o'clock anterior depth 2 cm from the nipple. The skin was prepped in the usual manner. A 14 gauge biopsy needle was placed adjacent to the abnormality under ultrasound guidance. Once the needle was documented to be in the correct location, three specimens were obtained using [employer]. A vision clip was inserted into the biopsy cavity. Post procedure imaging demonstrates the location device at the targeted area. The specimens were sent to the laboratory for pathological analysis. IMPRESSION: ULTRASOUND GUIDED BIOPSY BENIGN Ultrasound guided biopsy of the 1.2 cm x 0.9 cm x 0.4 cm mass in the left breast at 6 o'clock anterior depth 2 cm from the nipple was successful. Pathology indicates benign fibroadenoma (FA). Pathology results are concordant with imaging findings. Screening mammography beginning at age 40 is recommended. Results and recommendations will be communicated to the ordering provider's office. This exam was interpreted at Station ID: [id number]. meron Waggoner M.D., M.D./:05/08/2023 21:49:06
== END ==
PROVIDERS: Family Provider Naturopath; PCP Family Medicine; Referring Provider Family Medicine; Visit Provider Family Medicine
DX: D24.2 Benign neoplasm of left breast
CPT/HCPCS: 19083; 77065; J0171

== ENCOUNTER → 2023-05-24 12:08 | Outpatient (CLI) | payer OTHER, SELFPAY ==
[2023-05-24 12:25] LABS: Appearance Urine UA CLEAR; Bilirubin Urine UA NEGATIVE (NEGATIVE); Color Urine UA YELLOW; Glucose Urine UA NEGATIVE (Negative); Ketones Urine UA TRACE (NEGATIVE); Leukocyte Esterase Urine UA NEGATIVE (NEGATIVE); Nitrite Urine UA NEGATIVE (Negative); Occult Blood Urine UA NEGATIVE (Negative); Protein Urine UA NEGATIVE (Negative); Specific Gravity Urine UA >=1.030 (1.000-1.035)
[2023-05-24 12:43] LABS: pH Urine UA 5.5 (4.5-8.0)
[2023-05-24 12:49] LABS: Bacteria Urine Occasional (0-1); RBC Urine 0-1/HPF (0-5/HPF); Urine Volume 10mL (spun); WBC Urine 0-1/HPF (0-5/HPF)
[2023-05-24 12:50] LABS: Culture Indicated Urine Cult Not Indicated; Mucus Urine 1+ (Negative); Squamous Epithelial Cell Urine 1-5 /HPF (0-5/HPF)
== END ==
LOC: LAB 12:09
PROVIDERS: Family Provider Naturopath; PCP Family Medicine; Referring Provider Nurse Practitioner Obstetrics & Gynecology; Visit Provider Nurse Practitioner Obstetrics & Gynecology
DX: R30.0 Dysuria (principal); R10.9 Unspecified abdominal pain
CPT/HCPCS: 81001

== ENCOUNTER → 2023-07-17 10:45 | Outpatient (CLI) | payer OTHER, SELFPAY ==
--- NOTE | 2023-07-17 10:46 | DI.US.S_ITS ---
PROCEDURE: US EXTREMITY NONVASC LOWER LT INDICATIONS: Left thigh lymph node swelling TECHNIQUE: Real-time scanning was performed of the left thigh, with image documentation. COMPARISON: None. FINDINGS: Corresponding the palpable area of concern in the upper medial left thigh, there is an irregular hypoechoic lesion in the subcutaneous tissues measuring 0.8 x 0.8 x 0.7 cm without internal vascularity. No lymphadenopathy. IMPRESSION: Irregular hypoechoic 0.8 cm lesion is seen in the subcutaneous tissues corresponding to the palpable area of concern. The appearance is nonspecific, but most likely represents a small area of ecchymosis, resolving hematoma, or scarring. Malignancy cannot be entirely excluded. Recommend correlation for prior trauma to the area as well as clinical follow-up to resolution. Repeat ultrasound versus advanced imaging could be performed if the lesion does not resolve or if there is significant change. Approved by: Ace Palomares M.D. on 07/17/2023 at 16:12
== END ==
PROVIDERS: Family Provider Naturopath; PCP Family Medicine; Referring Provider Physician Assistant; Visit Provider Physician Assistant
DX: R22.32 Localized swelling, mass and lump, left upper limb (principal)
CPT/HCPCS: 76882

== ENCOUNTER → 2023-09-12 08:15 | Outpatient (CLI) | payer OTHER, SELFPAY ==
[2023-09-12 09:22] LABS: Erythrocyte Sedimentation Rate 2 MM/HR (0-20)
[2023-09-12 09:56] LABS: Thyroid Stimulating Hormone 1.19 uIU/mL (0.47-4.68)
[2023-09-13 09:00] LABS: Thyroid Peroxidase Antibodies 10 IU/mL (0-34)
== END ==
LOC: LAB 08:16
PROVIDERS: Family Provider Naturopath; PCP Family Medicine; Referring Provider Obstetrics & Gynecology; Visit Provider Obstetrics & Gynecology
DX: N95.1 Menopausal and female climacteric states (principal)
CPT/HCPCS: 36415; 82397; 84439; 84443; 85651; 86256; 86376

== ENCOUNTER → 2023-11-15 12:12 | Outpatient (CLI) | payer OTHER, SELFPAY ==
[2023-11-15 13:27] LABS: Free T4, Direct Thyroxine 1.07 ng/dL (0.78-2.19)
[2023-11-15 13:42] LABS: Thyroid Stimulating Hormone 1.06 uIU/mL (0.47-4.68)
== END ==
PROVIDERS: Family Provider Naturopath; PCP Family Medicine; Referring Provider Family Medicine; Visit Provider Family Medicine
DX: E03.9 Hypothyroidism, unspecified (principal)
CPT/HCPCS: 36415; 84439; 84443

== ENCOUNTER → 2023-12-18 16:25 | Outpatient (CLI) | payer OTHER, SELFPAY ==
[2023-12-18 18:30] LABS: Cortisol Random 8.42 ug/dL
[2023-12-18 19:01] LABS: TSH w/ Reflex to FT4 0.88 uIU/mL (0.47-4.68)
== END ==
PROVIDERS: Family Provider Naturopath; PCP Family Medicine; Referring Provider Family Medicine; Visit Provider Family Medicine
DX: E03.9 Hypothyroidism, unspecified (principal); R53.83 Other fatigue
CPT/HCPCS: 36415; 82533; 84443

== ENCOUNTER → 2023-12-21 17:00 | Outpatient (CLI) | payer OTHER, SELFPAY ==
[2023-12-22 16:14] LABS: Free T4, Direct Thyroxine 1.18 ng/dL (0.78-2.19)
== END ==
PROVIDERS: Family Provider Naturopath; PCP Family Medicine; Referring Provider Family Medicine; Visit Provider Family Medicine
DX: E03.9 Hypothyroidism, unspecified (principal)
CPT/HCPCS: 36415; 84439

== ENCOUNTER → 2024-02-14 10:45 | Outpatient (CLI) | payer OTHER, SELFPAY ==
[2024-02-14 12:17] LABS: Free T4, Direct Thyroxine 0.95 ng/dL (0.78-2.19)
[2024-02-14 12:31] LABS: Thyroid Stimulating Hormone 1.12 uIU/mL (0.47-4.68)
== END ==
PROVIDERS: Family Provider Naturopath; PCP Family Medicine; Referring Provider Obstetrics & Gynecology; Visit Provider Obstetrics & Gynecology
DX: E03.9 Hypothyroidism, unspecified (principal); N95.1 Menopausal and female climacteric states
CPT/HCPCS: 36415; 83036; 84439; 84443

== ENCOUNTER → 2025-01-30 06:37 | Outpatient (CLI) | payer OTHER, BC, SELFPAY ==
[2025-01-30 08:11] LABS: Add Manual Diff / Slide Review NO; Hematocrit 38.8 % (36-46); Hemoglobin 13.2 g/dL (12.0-16.0); Lymphocytes Absolute Auto 1700 /uL (1100-4500); Mean Corpuscular HGB Conc 34.1 % (30-36); Mean Corpuscular Hemoglobin 30.4 PG (26-34); Mean Corpuscular Volume 89.2 fL (80-100); Platelet Count 251 X10^3/uL (150-400)
[2025-01-30 08:38] LABS: Alanine Aminotransferase 14 IU/L (<35); Alkaline Phosphatase 38 U/L (38-126); Blood Urea Nitrogen 19 mg/dL (7-17); Calcium 9.5 mg/dL (8.4-10.2); Chloride 103 mmol/L (98-107); Cholesterol 179 mg/dL (140-199); Estimated Glomerular Filt Rate > 60 mL/min (>60); Glucose 102 mg/dL (70-99); HDL Cholesterol 88 mg/dL (40-60); HEMOLYSIS < 15 (0-50); Potassium 4.6 mmol/L (3.4-5.1); Sodium 139 mmol/L (137-145); Triglycerides 61 mg/dL (35-150)
[2025-01-30 08:39] LABS: Albumin 5.0 g/dL (3.5-5.0); Albumin Globulin Ratio 1.7 (1.0-2.8); Carbon Dioxide 26 mmol/L (22-32); Globulin 2.9 g/dL (1.7-4.1); Total Protein 7.9 g/dL (6.3-8.2)
[2025-01-30 08:46] LABS: Vitamin D 25 Hydroxy (D3) 50.8 ng/mL (30.0-100.0)
[2025-01-30 09:01] LABS: TSH w/ Reflex to FT4 1.66 uIU/mL (0.47-4.68)
== END ==
PROVIDERS: PCP Family Medicine; Referring Provider Family Medicine; Visit Provider Family Medicine
DX: E55.9 Vitamin D deficiency, unspecified (principal); Z83.438 Family history of other disorder of lipoprotein metabolism and other lipidemia; E03.9 Hypothyroidism, unspecified; Z79.899 Other long term (current) drug therapy; Z13.220 Encounter for screening for lipoid disorders
CPT/HCPCS: 36415; 80053; 80061; 82306; 84443; 85025; 87177

== ENCOUNTER → 2025-02-24 07:55 | Outpatient (CLI) | payer OTHER, BC, SELFPAY ==
--- NOTE | 2025-02-24 07:56 | DI.US.S_ITS ---
MM diagnostic mammo implant BI, US breast RT limited: 02/24/2025 BI-RADS: 3 CLINICAL: 39-year old female for bilateral diagnostic mammogram and right diagnostic breast ultrasound. Tyrer-Cuzick lifetime risk of 14.1%. No personal or first- degree family history of breast cancer. Current reported family history of breast cancer: maternal aunt's daughter and maternal uncle's daughter. The patient reports a palpable abnormality (3 months) and pain (3 months) in the right breast. The patient has bilateral implants. The patient had a prior left breast biopsy. PRIOR EXAMS 05/02/2023, 04/20/2023, 06/16/2022, 05/26/2022, 06/01/2020. MAMMOGRAPHY TECHNIQUE: 2D and 3D (tomosynthesis) digital mammographic views obtained, with additional images as needed for full coverage. Current study was also evaluated with a Computer Aided Detection (CAD) system. ULTRASOUND TECHNIQUE Real-time waite scale and color doppler imaging of the area of clinical interest was performed with image documentation. Right targeted breast ultrasound of the area of clinical interest and the axilla was performed with image documentation. DENSITY D. The breasts are extremely dense, which lowers the sensitivity of mammography. IMPLANTS Right: Breast implant present on the right. Left: Breast implant present on the left. MAMMOGRAPHY FINDINGS Right: Central, Anterior depth: A skin marker was placed in the area of concern, and no mammographic abnormalities are identified or to account for concern by the patient. No suspicious mass, asymmetry, microcalcification, or other abnormality seen. Left: Biopsy marker present on the left. There are no suspicious masses, calcifications, or other findings in the breast. ULTRASOUND FINDINGS Right: Upper Outer at 9:30, 5 cm from nipple, measuring 0.6 x 0.4 x 0.7 cm: Correlating with palpable lump there is an oval, circumscribed, hypoechoic mass that is parallel. This is likely a fibroadenoma. Doppler shows no vascularity. Right: Lower at 6:00, 2 cm from nipple: There is no sonographic abnormality to account for concern by the patient of pain/tenderness. Right: Axilla: No abnormal lymph nodes are seen in the axilla. IMPRESSION: Right (Mass): Upper Outer at 9:30, 5 cm from nipple, measuring 0.6 x 0.4 x 0.7 cm * Probably Benign. Left * No evidence of malignancy with benign findings. RECOMMENDATIONS Right: Upper Outer at 9:30, 5 cm from nipple * Six month followup with diagnostic ultrasound. COMMENTS: Findings and recommendations were conveyed to the patient during today's evaluation. OVERALL ASSESSMENT CATEGORY BI-RADS-3: Probably Benign. ELECTRONICALLY SIGNED: Virginie Glasgow M.D. on 02/24/2025 at 10:03:42 AM PT Interpreting Station ID: [id number]
== END ==
LOC: MAMMO 07:55
PROVIDERS: PCP Family Medicine; Referring Provider Family Medicine; Visit Provider Family Medicine
DX: N64.4 Mastodynia (principal); N63.11 Unspecified lump in the right breast, upper outer quadrant; R92.341 Mammographic extreme density, right breast; Z80.3 Family history of malignant neoplasm of breast; Z98.82 Breast implant status
CPT/HCPCS: 76642; 77066; G0279